=== PATIENT | male | born 1950 | race Caucasian/White ===

== ENCOUNTER → 2017-08-30 12:03 | Outpatient (REF) | payer MEDICARE, OTHER, SELFPAY ==
[2017-08-30 13:57] LABS: Basophils # 0.1 K/mm3 (0-0.2); Eosinophils # 0.2 K/mm3 (0.0-0.4); Eosinophils % 2.7 % (0.1-12.0); Hematocrit 46.7 % (42.0-52.0); Hemoglobin 15.8 g/dL (14.1-18.0); Lymphocytes # 2.2 K/mm3 (0.7-4.5); Lymphocytes % 30.5 K/mm3 (10-50); Mean Corpuscular HGB Conc 33.8 g/dL (31.8-35.4); Mean Corpuscular Hemoglobin 30.9 pg (27.0-31.2); Mean Corpuscular Volume 91.4 fl (80-94); Mean Platelet Volume 7.5 fl (7.4-10.4); Monocytes # 0.3 K/mm3 (0.1-1.0); Monocytes % 4.8 % (1.7-9.3); Neutrophils # 4.3 K/mm3 (1.8-7.8); Platelet Count 189 K/mm3 (142-424); Red Blood Count 5.11 M/mm3 (4.60-6.20); Red Cell Distribution Width 12.9 % (11.5-17.5); White Blood Count 7.1 K/mm3 (4.8-10.8)
[2017-08-30 14:25] LABS: Alanine Aminotransferase 43 U/L (12-78); Albumin Level 4.4 gm/dL (3.4-5.0); Albumin/Globulin Ratio 1.4 (1.1-1.8); Alkaline Phosphatase 103 U/L (46-116); Anion Gap 12.5 mEq/L (5-15); Aspartate Amino Transferase 25 U/L (15-37); Bilirubin,Total 0.4 mg/dL (0.2-1.0); Blood Urea Nitrogen 15 mg/dL (7-18); Calcium 9.2 mg/dL (8.5-10.1); Carbon Dioxide 29 mmol/L (21.0-32.0); Chloride 104 mmol/L (98-107); Creatinine,Serum 1.08 mg/dL (0.70-1.30); Estimated Glomerular Filt Rate 68 ml/min (>60); GFR (African American) 82 ML/MIN (>60); Globulin 3.1 gm/dl (1.3-3.2); Glucose 98 mg/dL (74-106); Potassium 4.5 mmoL/L (3.5-5.1); Sodium 141 mmol/L (136-145); Total Protein,Serum 7.5 gm/dL (6.4-8.2)
[2017-09-01 06:16] LABS: Prostate Specific Ag 7.7 ng/mL (0.0-4.0)
== END ==
LOC: LAB 12:03
PROVIDERS: Visit Provider Emergency Medicine
DX: R39.9 Unspecified symptoms and signs involving the genitourinary system (principal); I25.10 Atherosclerotic heart disease of native coronary artery without angina pectoris; N40.1 Benign prostatic hyperplasia with lower urinary tract symptoms; N52.9 Male erectile dysfunction, unspecified
CPT/HCPCS: 80053; 84153; 84154; 85025

== ENCOUNTER → 2017-09-30 12:08 | Outpatient (CLI) | payer MEDICARE, OTHER, SELFPAY ==
[2017-10-01 13:46] LABS: Prostate Specific Ag 9.6 ng/mL (0.0-4.0)
== END ==
PROVIDERS: PCP Urology; Visit Provider Urology
DX: R97.20 Elevated prostate specific antigen [PSA] (principal)
CPT/HCPCS: 36415; 84153; 84154

== ENCOUNTER → 2017-10-14 10:00 | Outpatient (CLI) | payer MEDICARE, OTHER, SELFPAY ==
--- NOTE | 2017-10-14 10:03 | XR_ITS ---
EXAM: XR lumbar spine 2-3V HISTORY: ITS.REASON: back pain ORDERING PHYSICIAN: Irais Cameron PATIENT AGE: 67 years COMPARISON: None FINDINGS: Normal alignment. No fracture or dislocation. Small anterior osteophytes are present at L4 and L5 with degenerative disc disease at L5-S1. There are mild facet arthritic changes at L5-S1. A 4 mm stone is present along the lower pole the left kidney. IMPRESSION: 1. Mild degenerative changes of lumbar spine. 2. Left nephrolithiasis
== END ==
PROVIDERS: PCP Nurse Practitioner Family; Visit Provider Nurse Practitioner Family
DX: M54.42 Lumbago with sciatica, left side (principal); M79.605 Pain in left leg
CPT/HCPCS: 72100

== ENCOUNTER → 2019-02-24 09:50 | Outpatient (CLI) | payer MEDICARE, OTHER, SELFPAY ==
--- NOTE | 2019-02-24 09:52 | XR_ITS ---
PROCEDURE: XR DEXA AXIAL SKELETON CLINICAL HISTORY: PROSTATE CANCER, HORMONE THERAPY COMPARISON: No exams were available for comparison FINDINGS: Right femoral neck density is 0.983 grams/centimeters sq with a T-score of 0.4 and a Z-score of 1.6. Left femoral total density is 1.115 grams/centimeters sq with a T-score of 0.5 and Z-score 1.2.. L1-L4 density has a T-score 3.3 and a Z-score 4.2. IMPRESSION: Normal bone density Dictated by: Rigoberto Rivera MD 02/24/2019 11:20 Electronically signed by Rigoberto Rivera MD in [place] 02/24/2019 11:20
== END ==
PROVIDERS: PCP Emergency Medicine; Visit Provider Internal Medicine Nephrology
DX: Z79.3 Long term (current) use of hormonal contraceptives (principal)
CPT/HCPCS: 77080

== ENCOUNTER → 2019-07-08 09:24 | Outpatient (CLI) | payer MEDICARE, OTHER, SELFPAY ==
[2019-07-08 13:02] LABS: Anion Gap 13.6 mEq/L (5-15); Blood Urea Nitrogen 26 mg/dl (9-20); Calcium 9.9 mg/dl (8.4-10.2); Carbon Dioxide 24 mmol/L (22.0-30.0); Chloride 107 mmol/L (98-107); Estimated Glomerular Filt Rate 74 ml/min (>60); GFR (African American) 89 ML/MIN (>60); Glucose 122 mg/dl (74-100); Potassium 4.6 mmoL/L (3.5-5.1); Sodium 140 mmol/L (136-145)
== END ==
PROVIDERS: Visit Provider Internal Medicine Cardiovascular Disease
DX: I25.10 Atherosclerotic heart disease of native coronary artery without angina pectoris (principal); I11.9 Hypertensive heart disease without heart failure; I27.20 Pulmonary hypertension, unspecified; I51.89 Other ill-defined heart diseases; F17.200 Nicotine dependence, unspecified, uncomplicated
CPT/HCPCS: 36415; 80048

== ENCOUNTER → 2019-08-10 10:09 | Outpatient (CLI) | payer MEDICARE, OTHER, SELFPAY ==
--- NOTE | 2019-08-10 10:12 | CT_ITS ---
PROCEDURE: CT HEAD/BRAIN WO CON CLINICAL INDICATION: slurred speech COMPARISON: No exams were available for comparison TECHNIQUE: Axial images obtained. All CT scans at the facility use one or more dose reduction, viz: automated exposure control, ma/kV adjustment per patient size (including targeted exams where dose is matched to indication, i.e. head), or iterative reconstruction technique. FINDINGS: No midline shift, mass effect, intracranial hemorrhage, hydrocephalus, or extra-axial fluid collection is evident. There is generalized atrophy with hypoattenuation of the periventricular white matter consistent with microangiopathic changes. The calvarium has an unremarkable appearance. No mastoid effusion. No sinus air-fluid level. IMPRESSION: No acute intracranial finding Dictated by: Rigoberto Rivera MD 08/10/2019 13:14 Electronically signed by Rigoberto Rivera MD in [place] 08/10/2019 13:14
== END ==
PROVIDERS: PCP Emergency Medicine; Visit Provider Nurse Practitioner Family
DX: F17.200 Nicotine dependence, unspecified, uncomplicated (principal); G47.33 Obstructive sleep apnea (adult) (pediatric); I11.9 Hypertensive heart disease without heart failure; I25.10 Atherosclerotic heart disease of native coronary artery without angina pectoris; I27.20 Pulmonary hypertension, unspecified; R47.81 Slurred speech
CPT/HCPCS: 70450

== ENCOUNTER → 2019-08-30 13:32 | Outpatient (CLI) | payer MEDICARE, OTHER, SELFPAY ==
--- NOTE | 2019-08-30 13:34 | CA_ITS ---
APPROVED REPORT EXAM: Comprehensive 2D, Doppler, and color-flow Echocardiogram President And Chief Executive Officer: Katherine Robbins, RT(R) Ht: 5 ft 8 in Wt: 196lbs BSA: 2.03 BP: 110/58 mmHg Indications: HTN, smoker, SOB, NUR, TIA, ERIC, CAD, PHTN, mod MR, an episode of slurred speech, prostate cancer 2D Dimensions LVOT 1.94 cm (M/F) 1.5-2.5 M-Mode Dimensions RVDd 2.36 cm (0.9-2.6) LVDd 4.92 cm (3.5-5.7) LVDs 3.81 cm (3.5-5.7) IVSd 0.91 cm (0.6-1.1) PWd 0.99 cm (0.6-1.1) EF (Teich) 45.30% FS 22.60% EDV (Teich) 113.90 mL ESV (Teich) 62.30 mL LV Diastology E/A Ratio 0.90 Mitral Valve MV A Velocity 101.00 (40-130 cm/s) Left Ventricle Left atrium is mildly enlarged, left ventricle is normal size, mild concentric left ventricular hypertrophy, visually estimated ejection fraction 55% with no regional wall motion abnormality. Grade 1 diastolic dysfunction seen without tissue Doppler evidence of raise left atrial pressure. Right Ventricle Right atrium and right ventricle are mildly enlarged with normal contractility. Aortic Valve Aortic valve is minimally thickened and fibrosed. There is no aortic stenosis or aortic insufficiency. Mitral Valve Mitral valve leaflets are minimally thickened, there is no mitral stenosis, there is mild to moderate mitral regurgitation. Tricuspid Valve Tricuspid valve grossly normal, there is mild tricuspid regurgitation, tricuspid regurgitation jet velocity is inadequate for calculation of the right ventricular systolic pressure. Pulmonic Valve Pulmonic valve is poorly visualized. Great Vessels Aortic root is normal size. Pericardium No significant pericardial effusion noted. Conclusion 1. Mild biatrial enlargement, normal left ventricular size, visually estimated ejection fraction 55% with no regional wall motion abnormality, grade 1 diastolic dysfunction seen without tissue Doppler evidence of raise left atrial pressure. 2. Mildly enlarged right ventricle with normal contractility 3. Mild to moderate mitral and mild tricuspid regurgitation. 4. No significant pericardial effusion noted. Electronically signed by : Colt Carvajal, 08/31/2019 11:36:20
--- NOTE | 2019-08-30 13:34 | CA_ITS ---
APPROVED REPORT Delivery Associate: Connie Calvin RVT Laterality: Bilateral Study Quality: Good Indications: slurred speech, Dizziness and Vertigo Risk Factors Hypertension: Hyperlipidemia Smoking Doppler Spectral Velocity Analysis ECA (R) 106.10/22.80 cm/s ECA (L) 92.00/22.00 cm/s dICA (R) 95.60/38.10 cm/s dICA (L) 92.60/31.30 cm/s Ronaldo (R) 122.50/38.10 cm/s Ronaldo (L) 118.40/45.60 cm/s pICA (R) 85.10/26.30 cm/s pICA (L) 56.20/23.50 cm/s dCCA (R) 68.80/18.50 cm/s dCCA (L) 57.70/21.40 cm/s pCCA (R) 82.80/19.00 cm/s pCCA (L) 96.10/36.30 cm/s Vert (R) 63.60/19.90 cm/s Vert (L) 40.10/14.20 cm/s ICA/CCA 1.78 ICA/CCA 2.05 Findings Study suggests 20-49% stenosis of the right internal cartoid artery. Study suggests 20-49% stenosis of the left internal cartoid artery. Antegrade flow seen bilateral vertebral arteries. Conclusion Study suggests 20-49% stenosis of the right internal cartoid artery. Study suggests 20-49% stenosis of the left internal cartoid artery. Antegrade flow seen bilateral vertebral arteries. Electronically signed by : Rigoberto Rivera MD 08/30/2019 16:23:51
== END ==
PROVIDERS: PCP Emergency Medicine; Visit Provider Nurse Practitioner Family
DX: F17.200 Nicotine dependence, unspecified, uncomplicated (principal); G47.33 Obstructive sleep apnea (adult) (pediatric); I11.9 Hypertensive heart disease without heart failure; I25.10 Atherosclerotic heart disease of native coronary artery without angina pectoris; I27.20 Pulmonary hypertension, unspecified; I34.0 Nonrheumatic mitral (valve) insufficiency; G45.9 Transient cerebral ischemic attack, unspecified; R47.81 Slurred speech
CPT/HCPCS: 93306; 93880

== ENCOUNTER → 2019-09-12 14:51 | Outpatient (CLI) | payer MEDICARE, OTHER, SELFPAY ==
--- NOTE | 2019-09-12 14:51 | MR_ITS ---
PROCEDURE: MR HEAD/BRAIN WO CON CLINICAL INDICATION: TIA SPEECH DISTURBANCE, BALANCE IS OFF, PT STATES HIS SAYS HE HAS HAD EPISODES 4-5 TIMES THE LAST MONTH THAT HE DOESNT RECALL. COMPARISON: CT CT HEAD/BRAIN WO CON from 08/10/2019 TECHNIQUE: Routine multiplanar multi echo sequences are performed without gadolinium enhancement. FINDINGS: No midline shift, mass effect, intracranial hemorrhage, hydrocephalus, or acute cortical infarction is evident. The there are involutional changes of age with atrophy and periventricular ischemic gliotic changes. The cerebellopontine angles, cerebellum, and brainstem have an unremarkable appearance there is some minimal increased T2 signal within the cassius which could be due to minimal ischemic gliotic change. Incidental note made of perivascular dilated spaces of the basal ganglia. The pituitary, optic chiasm, corpus callosum, and craniocervical junction have an unremarkable appearance. There is complete opacification of the right maxillary sinus with mild mucosal thickening of this ethmoid sinuses. No mastoid effusion. IMPRESSION: 1. No acute intracranial findings. 2. Complete opacification of the right maxillary sinus along with mild mucosal thickening of the ethmoid sinuses. The Dictated b Rigoberto Rivera MD 09/13/2019 12:40 Rigoberto Rivera MD in [place] 09/13/2019 12:40
--- NOTE | 2019-09-12 14:51 | MR_ITS ---
PROCEDURE: MR ANGIO HEAD WO CON CLINICAL INDICATION: TIA SPEECH DISTURBANCE, BALANCE IS OFF, PT STATES HIS SAYS HE HAS HAD EPISODES 4-5 TIMES IN THE LAST MONTH THAT HE DOESNT RECALL. COMPARISON: No exams were available for comparison TECHNIQUE: 3D [id number] images are obtained without contrast with multi slab reformats FINDINGS: The vertebral basilar system has an unremarkable appearance. Bilateral vertebral arteries are patent. No aneurysm, AVM, or major intracranial occlusive process is. Single-shot MRV is unremarkable. The distal aspect the anterior cerebral arteries are not included on the exam. IMPRESSION: Negative MRA of the brain. Dictated b Rigoberto Rivera MD 09/13/2019 12:45 Rigoberto Rivera MD in [place] 09/13/2019 12:45
--- NOTE | 2019-09-12 15:09 | MR_ITS ---
PROCEDURE: MR ANGIO NECK WO CON CLINICAL INDICATION: TIA SPEECH DISTURBANCE, BALANCE IS OFF, PT STATES HIS SAYS HE HAS HAD EPISODES 4-5 TIMES IN THE LAST MONTH THAT HE DOESNT RECALL. COMPARISON: No exams were available for comparison TECHNIQUE: [id number] images are obtained with multi slab reformats without contrast. FINDINGS: There is a mild degree of motion artifact. No significant carotid stenosis apparent. Vertebrals are patent. IMPRESSION: Negative MRA of the neck Dictated b Rigoberto Rivera MD 09/13/2019 12:42 Rigoberto Rivera MD in [place] 09/13/2019 12:42
== END ==
PROVIDERS: PCP Emergency Medicine; Visit Provider Emergency Medicine
DX: G45.9 Transient cerebral ischemic attack, unspecified (principal)
CPT/HCPCS: 70544; 70547; 70551

== ENCOUNTER → 2022-04-28 09:48 | Outpatient (CLI) | payer MEDICARE, OTHER, SELFPAY ==
--- NOTE | 2022-04-28 | CA_ITS ---
APPROVED REPORT EXAM: Comprehensive 2D, Doppler, and color-flow Echocardiogram Electronic Parts Designer: Katherine Robbins RT(R) Ht: 5 ft 8 in Wt: 204lbs BSA: 2.06 BP: 136/82 mmHg Indications: CAD, HTN, smoker, hyperlipidemia, ALS, prostate CA 2D Dimensions LVOT 2.08 cm (M/F) 1.5-2.5 M-Mode Dimensions RVDd 2.50 cm (0.9-2.6) LA Diam 3.01 cm (1.9-4.0) LVDd 5.64 cm (3.5-5.7) Ao Diam 3.13 cm (2.0-3.7) LVDs 4.58 cm (3.5-5.7) IVSd 1.21 cm (0.6-1.1) PWd 0.76 cm (0.6-1.1) EF (Teich) 38.30% FS 18.80% EDV (Teich) 156.20 mL ESV (Teich) 96.30 mL LV Diastology E Decel Time 283.00 (160-240 msec) E/A Ratio 0.8 MED E' 5.40 (< 7 cm/sec) E'/MED E' Ratio 14.94 (>14) LAT E' 7.40 (<10 cm/sec) E/LAT E' Ratio 10.91 (>14) Mitral Valve MV E Max Blue. 81.00 (40-130 cm/s) MV A Velocity 100.00 (40-130 cm/s) E/A Ratio 0.81 MV Decel. Time 283.00 (160-240 ms) MV PHT 83.00 ms Left Ventricle Left atrium is mildly enlarged, left ventricle is normal size, mild concentric left ventricular hypertrophy, estimated ejection fraction 55% with no regional wall motion abnormality, grade 1 diastolic dysfunction seen without tissue Doppler evidence of raise left atrial pressure. Right Ventricle Right atrium and right ventricle are normal size and contractility. Aortic Valve Aortic valve is minimally thickened and calcified without aortic stenosis aortic insufficiency. Mitral Valve Mitral valve leaflets are minimally thickened, there is mild mitral regurgitation. Tricuspid Valve Tricuspid grossly normal, there is mild tricuspid regurgitation, tricuspid regurgitation jet plus is inadequate for calculation of the right ventricular systolic pressure. Pulmonic Valve Pulmonic valve is poorly visualized. Great Vessels Aortic root normal size. Inferior vena cava is poorly visualized. Pericardium No significant pericardial effusion noted. Conclusion 1. Mildly enlarged atrium, normal left ventricular size, mild concentric left ventricular hypertrophy, estimated ejection fraction 55% with no regional wall motion abnormality, grade 1 diastolic dysfunction seen without tissue Doppler evidence of raised left atrial pressure. 2. Mild mitral and tricuspid regurgitation. 3. No significant pericardial effusion noted. 4. Inferior vena cava is poorly visualized. Electronically signed by : Colt Carvajal MD 04/28/2022 19:12:58
--- NOTE | 2022-04-28 | CA_ITS ---
FINAL REPORT TECHNIQUE: Color Doppler, duplex Doppler and davis scale sonography of the bilateral neck arterial vasculature was performed. Velocities were measured in the carotid arteries. Stenosis evaluation based on the validated velocity criteria. CLINICAL HISTORY: OLINDA, Bruit FINDINGS: The peak systolic velocity of the right common carotid artery is 73 cm/s. The peak systolic velocity of the right internal carotid artery is 153 cm/s and end diastolic velocity 30 cm/s. The ICA/CCA ratio is 2.2. Bulky plaque is present. The right external carotid artery is patent. The right vertebral artery is patent with antegrade flow. The peak systolic velocity of the left common carotid artery is 61 cm/s. The peak systolic velocity of the left internal carotid artery is 112 cm/s and end diastolic velocity 45 cm/s. The ICA/CCA ratio is 1.9. A moderate amount of plaque is present. The left external carotid artery is patent.The left vertebral artery is patent with antegrade flow. IMPRESSION: Less than 50% bilateral carotid stenoses. Bilateral patent vertebral arteries with antegrade flow. If indicated, CTA or MRA could further evaluate. Reviewed, Interpreted and Dictated by Cesar Mcbride MD Transcribed by Diana Chavez Authenticated and [facility]
== END ==
PROVIDERS: PCP Emergency Medicine; Visit Provider Nurse Practitioner Family
DX: I25.10 Atherosclerotic heart disease of native coronary artery without angina pectoris (principal); I65.23 Occlusion and stenosis of bilateral carotid arteries
CPT/HCPCS: 93306; 93880

== ENCOUNTER → 2022-06-02 11:03 | Outpatient (POV) | payer OTHER, SELFPAY | PROVIDERS: Visit Provider Dermatology | DX: Z00.00 Encounter for general adult medical examination without abnormal findings (principal) ==

== ENCOUNTER → 2022-11-17 09:00 | Outpatient (CLI) | payer MEDICARE, OTHER, SELFPAY ==
[2022-11-17 13:07] LABS: Basophils % 0.5 % (0.1-2.0); Eosinophils # 0.1 K/mm3 (0.0-0.4); Eosinophils % 2.1 % (0.1-12.0); Hematocrit 29.4 % (42.0-52.0); Lymphocytes # 1.2 K/mm3 (0.7-4.5); Lymphocytes % 28.5 % (10-50); Mean Corpuscular HGB Conc 33.9 g/dL (31.8-35.4); Mean Corpuscular Volume 123.3 fl (80-94); Mean Platelet Volume 8.2 fl (7.4-10.4); Monocytes # 0.1 K/mm3 (0.1-1.0); Monocytes % 3.2 % (1.7-9.3); Neutrophils # 2.7 K/mm3 (1.8-7.8); Neutrophils % 65.7 % (37.0-80.0); Platelet Count 270 K/mm3 (142-424); Red Blood Count 2.39 M/mm3 (4.60-6.20); Red Cell Distribution Width 17.6 % (11.5-17.5)
[2022-11-17 13:12] LABS: Mean Corpuscular Hemoglobin 41.8 pg (27.0-31.2)
[2022-11-17 13:38] LABS: Alanine Aminotransferase 23 U/L (12-78); Albumin Level 4.1 g/dl (3.5-5.0); Albumin/Globulin Ratio 1.8 (1.1-1.8); Alkaline Phosphatase 77 U/L (38-126); Anion Gap 13.7 mEq/L (5-15); Aspartate Amino Transferase 25 U/L (17-59); Bilirubin,Total 0.4 mg/dl (0.2-1.3); Blood Urea Nitrogen 22 mg/dl (9-20); Calcium 9.6 mg/dl (8.4-10.2); Carbon Dioxide 26 mmol/L (22.0-30.0); Chloride 108 mmol/L (98-107); Chol/HDL Ratio 5.5 (1-3.5); Cholesterol 133 mg/dl (140-200); Estimated Glomerular Filt Rate 66 ml/min (>60); GFR (African American) 79 ML/MIN (>60); Globulin 2.3 g/dL (1.3-3.2); Glucose 132 mg/dl (74-100); HDL Cholesterol 24 mg/dl (40-60); Potassium 3.7 mmoL/L (3.5-5.1); Sodium 144 mmol/L (136-145); Total Protein,Serum 6.4 g/dl (6.3-8.2); Triglycerides 123 mg/dl (30-150); VLDL Cholesterol 25 mg/dL (0-40)
[2022-11-17 13:55] LABS: 25-OH Vitamin D, Total 56.8 ng/mL (30-100)
[2022-11-17 13:56] LABS: T4 (Thyroxine) 9.1 ug/dl (5.53-11.0)
[2022-11-17 14:09] LABS: Thyroid Stimulating Hormone 3.27 uIU/mL (0.465-4.68)
== END ==
PROVIDERS: PCP Emergency Medicine; Visit Provider Emergency Medicine
DX: G12.21 Amyotrophic lateral sclerosis (principal); R73.09 Other abnormal glucose; Z68.31 Body mass index [BMI] 31.0-31.9, adult; E66.9 Obesity, unspecified; R53.83 Other fatigue
CPT/HCPCS: 80053; 80061; 82306; 83036; 84436; 84443; 85025

== ENCOUNTER → 2022-11-27 09:50 | Outpatient (CLI) | payer MEDICARE, OTHER, SELFPAY ==
[2022-11-27 12:42] LABS: Basophils % 0.5 % (0.1-2.0); Eosinophils # 0.1 K/mm3 (0.0-0.4); Eosinophils % 2.7 % (0.1-12.0); Hematocrit 30.8 % (42.0-52.0); Hemoglobin 10.3 g/dL (14.1-18.0); Lymphocytes # 1.4 K/mm3 (0.7-4.5); Lymphocytes % 33.9 % (10-50); Mean Corpuscular HGB Conc 33.5 g/dL (31.8-35.4); Mean Corpuscular Volume 125.4 fl (80-94); Mean Platelet Volume 8.1 fl (7.4-10.4); Monocytes # 0.1 K/mm3 (0.1-1.0); Monocytes % 2.4 % (1.7-9.3); Neutrophils # 2.5 K/mm3 (1.8-7.8); Neutrophils % 60.4 % (37.0-80.0); Platelet Count 262 K/mm3 (142-424); Red Blood Count 2.46 M/mm3 (4.60-6.20); Red Cell Distribution Width 17.4 % (11.5-17.5); White Blood Count 4.1 K/mm3 (4.8-10.8)
[2022-11-29 12:30] LABS: Peripheral Smear Review Scanned Result
== END ==
PROVIDERS: PCP Emergency Medicine; Visit Provider Emergency Medicine
DX: I25.10 Atherosclerotic heart disease of native coronary artery without angina pectoris (principal); R53.83 Other fatigue
CPT/HCPCS: 85025

== ENCOUNTER 2023-06-21 11:12 | Emergency (ER) | payer MEDICARE, OTHER, SELFPAY ==
--- NOTE | 2023-06-21 11:38 | EXP.UTC ---
Discharge Plan Disposition Patient Disposition: Home, Self-Care Condition: Good Prescriptions Prescriptions: No Action tamsulosin [Flomax] 0.4 mg capsule 0.4 mg PO DAILY cholecalciferol (vitamin D3) 25 mcg (1,000 unit) capsule 25 mcg PO DAILY ascorbic acid (vitamin C) 500 mg capsule 500 mg PO DAILY clopidogrel [Plavix] 75 mg tablet 75 mg PO DAILY memantine 10 mg tablet 10 mg PO BID magnesium oxide 500 mg tablet 500 mg PO BID omega-3 fatty acids [Fish Oil Concentrate] 1,000 mg capsule 1,000 mg PO DAILY zinc 50 mg tablet 50 mg PO DAILY Lynparza 150 mg tablet 300 mg PO BID leuprolide 7.5 mg injectable IM bicalutamide 50 mg tablet 50 mg PO DAILY Patient Comments: TAKE 1 TABLET BY MOUTH EVERY DAY megestrol 40 mg tablet 40 mg PO BID Patient Comments: TAKE 1 TABLET (40 MG TOTAL) BY MOUTH 3 TIMES A DAY FOR 60 DAYS. riluzole 50 mg tablet 50 mg PO BID Patient Comments: TAKE 1 TABLET BY MOUTH EVERY 12 HOURS losartan 50 mg tablet 50 mg PO DAILY Qty: 90 5RF Referrals Follow up/Referrals: [place] DO [Primary Care Provider] - See instructions Activity Restrictions/Add. Instructions Additional Instructions/Restrictions: You have been evaluated in the ED for your complaints. You may follow-up with your PCP in the next 3 to 5 days. Please return to ED for any new or worsening symptoms. Please continue to watch your urine as discussed. You develop any fevers or pelvic pain, please return to the ED for reassessment. Clinical Impressions Clinical Impression: Acute right flank pain, Hematuria Instructions Patient Instructions: DI for Acute Abdominal Pain Discharge ED Provider: Francia Chen [facility] General Chief complaint: Abdominal Pain Stated complaint: lower right side pain Time Seen by Provider: 06/21/23 11:38 History of Present Illness Provider Complaint: He states that he has had right flank pain that goes from his right lower back around toward his groin for the past 3 days. He rates the pain as an 8/10. He states that the pain is constant, but at times it gets worse in waves . He denies any urinary symptoms. He has ALS, so his is normally weak, but he has been much more weak than his normal since this pain started. He denies any fever/chills. He denies n/v/d. His last bowel movement was 2 days ago and he states it was normal . He states that he usually has a b.m. every one to two days. He has a significant history of metastatic prostate cancer and ALS. Related Data Home Medications Medication Instructions Recorded Confirmed cholecalciferol (vitamin D3) 25 25 mcg PO DAILY 06/29/19 06/21/23 mcg (1,000 unit) capsule tamsulosin 0.4 mg capsule (Flomax) 0.4 mg PO DAILY 06/29/19 06/21/23 ascorbic acid (vitamin C) 500 mg 500 mg PO DAILY 08/29/20 06/21/23 capsule clopidogrel 75 mg tablet (Plavix) 75 mg PO DAILY 08/29/20 06/21/23 magnesium oxide 500 mg PO BID 08/29/20 06/21/23 memantine 10 mg tablet 10 mg PO BID 08/29/20 06/21/23 omega-3 fatty acids 1,000 mg 1,000 mg PO DAILY 08/29/20 06/21/23 capsule (Fish Oil Concentrate) zinc 50 mg tablet 50 mg PO DAILY 08/29/20 06/21/23 leuprolide 7.5 mg intramuscular mg IM 04/21/22 03/03/23 megestrol 40 mg tablet 40 mg PO BID 04/21/22 06/21/23 olaparib 150 mg tablet (Lynparza) 300 mg PO BID 04/21/22 03/03/23 riluzole 50 mg tablet 50 mg PO BID 11/17/22 06/21/23 bicalutamide 50 mg tablet 50 mg PO DAILY 03/03/23 06/21/23 Previous Rx's Medication Instructions Recorded losartan 50 mg tablet 50 mg PO DAILY #90 tabs 04/19/23 Allergies Allergy/AdvReac Type Severity Reaction Status Date / Time shellfish derived Allergy Intermediate I-HIVES Verified 06/21/23 12:01 [From SHELLFISH (FOOD/DRUG)] From SHELLFISH (FOOD/DRUG) Allergy Intermediate I-HIVES Uncoded 06/21/23 12:53 [facility] Disclaimer: The information contained in this section may have been updated after the patient was seen, as this information can be updated by other users. Medical History Diastolic dysfunction Hypertension Prostate cancer ALS (amyotrophic lateral sclerosis) Slurred speech Moderate mitral valve regurgitation HHD (hypertensive heart disease) Pulmonary hypertension Tobacco dependence syndrome Diastolic dysfunction Coronary arteriosclerosis Social History Smoking Status: Current every day smoker tobacco type: cigarettes packs per day: 1 alcohol intake: never substance use type: denies use current occupational status: retired Travel in the last 8 weeks: Inside the [place] caffeine: Yes ROS Obtained: Yes All systems reviewed & no additional complaints except as documented Constitutional Constitutional: Denies chills, Denies fever(s) and Reports weakness Eyes Eyes: Denies eye discharge ENT Ears, Nose, Mouth, and Throat: Denies dizziness, Denies otalgia, Denies neck pain and Denies sore throat Cardiovascular Cardiovascular: Denies chest pain Respiratory Respiratory: Denies shortness of breath, Denies chest congestion, Denies cough, Denies stridor and Denies wheezing Gastrointestinal Gastrointestingal: Denies nausea or vomiting Musculoskeletal Musculoskeletal: Reports as per HPI, Reports back pain and Denies neck pain Integumentary/Breasts Skin/Breast: Denies rash Neurologic Neurologic: Denies dizziness, Denies paresthesias, Reports tremor(s) and Reports weakness Allergic/Immunologic Allergic/Immunologic: Denies wheezing Physical Exam General General appearance: alert and anxious Head Head exam: atraumatic, normocephalic and normal inspection Eye Eye exam: Present normal appearance, PERRL and EOMI ENT ENT exam: Present normal exam, normal oropharynx, mucous membranes moist, TM's normal bilaterally and normal external ear exam Neck Neck exam: Present normal inspection, full ROM and trachea midline; Absent meningismus or lymphadenopathy Chest Chest inspection: Present normal inspection and symmetric chest wall rise; Absent tenderness Respiratory Respiratory exam: Present normal lung sounds bilaterally; Absent respiratory distress Cardiovascular Cardiovascular exam: Present regular rate and normal rhythm; Absent JVD Abdominal Exam Abdominal exam: Present soft and normal bowel sounds; Absent distention, tenderness or guarding Extremities Exam Extremities exam: Present normal inspection, full ROM and normal capillary refill; Absent calf tenderness Back Exam Back exam: Present normal inspection; Absent tenderness Neurological Exam Neurological exam: Present alert and oriented X3 Expanded Neurological Exam Speech: Present fluid speech Motor strength - LUE: 3/5 Motor strength - RUE: 3/5 Motor strength - LLE: 3/5 Motor strength - RLE: 3/ Psychiatric Psychiatric exam: Present normal affect and normal mood Skin Skin exam: Present warm, dry, intact and normal color Lymphatic Lymphatic Findings: no adenopathy Medical Decision Making Medical Records Medical records reviewed: No I reviewed the patient's medical records. [place] Inquiry Pt receiving controlled substance: No Lab Data Lab results reviewed: Yes I reviewed the patient's lab results. 06/21/23 12:42 06/21/23 12:42 Medical Decision Narrative: He was transferred to the ER for further evaluation due to his history of metastatic prostate cancer and ALS.
[2023-06-21 11:40] VITALS: BP 113/65; PULSE 71; RESP 18; TEMP 37.3; O2SAT 95; BMI 31.0
[2023-06-21 12:55] LABS: Basophils % 0.6 % (0.1-2.0); Eosinophils % 0.9 % (0.1-12.0); Hematocrit 34.9 % (42.0-52.0); Hemoglobin 11.3 g/dL (14.1-18.0); Lymphocytes # 0.9 K/mm3 (0.7-4.5); Lymphocytes % 19.4 % (10-50); Mean Corpuscular HGB Conc 32.4 g/dL (31.8-35.4); Mean Corpuscular Hemoglobin 31.4 pg (27.0-31.2); Mean Corpuscular Volume 97.1 fl (80-94); Mean Platelet Volume 7.6 fl (7.4-10.4); Monocytes # 0.3 K/mm3 (0.1-1.0); Monocytes % 6.6 % (1.7-9.3); Neutrophils # 3.3 K/mm3 (1.8-7.8); Neutrophils % 72.4 % (37.0-80.0); Platelet Count 220 K/mm3 (142-424); Red Cell Distribution Width 14.2 % (11.5-17.5); White Blood Count 4.6 K/mm3 (4.8-10.8)
[2023-06-21 12:59] LABS: Apearance,Urine Clear (Clear); Bilirubin,Urine Negative (Negative); Blood, Urine 2+ (Negative); Color,Urine Yellow (Yellow); Glucose,Urine (UA) Negative (Negative); Ketones,Urine Negative (Negative); PH,Urine 5.5 (5.0-8.5); Protein,Urine Negative (Negative); Specific Gravity, Urine 1.025 (1.005-1.030); UTC Leukocyte Esterase,Urine Negative (Negative); UTC Nitrate,Urine Negative (Negative); Urobilinogen,Urine 0.2 EU/dl (0.2)
[2023-06-21 13:01] LABS: Chloride 100 mmol/L (98-107)
[2023-06-21 13:02] LABS: Potassium 4.7 mmoL/L (3.5-5.1); Sodium 134 mmol/L (136-145)
[2023-06-21 13:04] LABS: Alkaline Phosphatase 622 U/L (38-126); Amylase 68 U/L (30-110); Anion Gap 15.7 mEq/L (5-15); Bilirubin,Total 0.9 mg/dl (0.2-1.3); Blood Urea Nitrogen 17 mg/dl (9-20); Calcium 9.8 mg/dl (8.4-10.2); Carbon Dioxide 23 mmol/L (22.0-30.0); Creatinine Clearance Estimated 85 mL/min (50-200); Estimated Glomerular Filt Rate 73 ml/min (>60); GFR (African American) 88 ML/MIN (>60); Glucose 99 mg/dl (74-100); Lipase 84 U/L (23-300)
[2023-06-21 13:05] LABS: Albumin Level 4.3 g/dl (3.5-5.0); Albumin/Globulin Ratio 1.4 (1.1-1.8); Aspartate Amino Transferase 53 U/L (17-59); Globulin 3.1 g/dL (1.3-3.2); Total Protein,Serum 7.4 g/dl (6.3-8.2)
[2023-06-21 13:06] LABS: Alanine Aminotransferase 45 U/L (12-78)
[2023-06-21 13:44] VITALS: BP 163/74; PULSE 77; RESP 16; TEMP 37.3; O2SAT 99; BMI 31.0
[2023-06-21 14:01] VITALS: BP 132/70; PULSE 76; O2SAT 95
--- NOTE | 2023-06-21 14:02 | CT_ITS ---
FINAL REPORT TECHNIQUE: Axial imaging of the lumbar spine was obtained without contrast. Sagittal and coronal reformatted images were also obtained and reviewed. This study was performed with techniques to keep radiation doses as low as reasonably achievable (ALARA). Individualized dose reduction techniques using automated exposure control or adjustment of mA and/or kV according to the patient's size were employed. CLINICAL HISTORY: severe low back/flank pain with h/o prostate ca COMPARISON: None FINDINGS: There is no fracture. The vertebral alignment is normal. The disc spaces are preserved.There is no evidence of significant central canal stenosis. There are multiple sclerotic areas consistent with widespread bony metastases in this patient with known prostate carcinoma. These metastatic changes are most severe at the L3 and L4 levels. L1-L2: An annular bulge is present. No evidence of central canal stenosis or neural foraminal narrowing. L2-L3: An annular bulge is present with facet osteoarthropathy and osteophytes. There is mild right neural foraminal narrowing. L3-L4: An annular bulge is present with facet arthropathy and osteophytes. There is moderate bilateral neural foraminal narrowing. L4-L5: An annular bulge is present with facet arthropathy and osteophytes. There is moderate bilateral neural foraminal narrowing. L5-S1: An annular bulge is present with facet arthropathy and osteophytes. There is severe bilateral neural foraminal narrowing. There is widespread confluent retroperitoneal adenopathy present in the abdomen, likely from the patient's known prostate carcinoma. IMPRESSION: Widespread confluent retroperitoneal adenopathy, likely from the patient's known prostate cancer. There are multiple sclerotic areas consistent with widespread bony metastases, most severe at the L3 and L4 levels. Multilevel degenerative change, with moderate to severe bilateral neural foraminal narrowing at multiple levels. Reviewed, Interpreted and Dictated by Jarod Teran III, MD Transcribed by Antonieta Liriano Authenticated and [facility]
--- NOTE | 2023-06-21 14:02 | CT_ITS ---
FINAL REPORT CLINICAL HISTORY: severe R flank pain COMPARISON: None FINDINGS: Axial CT images of the abdomen and pelvis were obtained without intravenous contrast. Coronal and sagittal reformatted images were also obtained.This study was performed with techniques to keep radiation doses as low as reasonably achievable (ALARA). Individualized dose reduction techniques using automated exposure control or adjustment of mA and/or kV according to the patient's size were employed. Abdomen: Bibasilar atelectasis present. There is no evidence of renal stone. There is mild right hydronephrosis and hydroureter. The gallstone is present in the gallbladder. The liver, spleen and pancreas have an unremarkable, unenhanced appearance. There is widespread retroperitoneal adenopathy, measuring 12 x 5 cm in size, surrounding the aorta and inferior vena cava, consistent with metastatic adenopathy from the patient's known prostate carcinoma. No inflammatory process is identified. Pelvis: Images of the pelvis reveal no evidence of ureteral dilation or ureteral stone.No mass or abnormal fluid collection is identified. The appendix is normal in appearance. There is a small umbilical hernia containing fat. Scattered colonic diverticula are present. Prostate seed implants are noted. Bilateral inguinal hernias containing fat are noted as well. There are multiple sclerotic foci in the spine and pelvis consistent with bony metastases. IMPRESSION: Widespread retroperitoneal adenopathy is present as described above, surrounding the aorta and inferior vena cava consistent with metastatic adenopathy. There is mild right hydronephrosis and hydroureter. Multiple sclerotic foci in the spine and pelvis consistent with bony metastases. Reviewed, Interpreted and Dictated by Jarod Teran III, MD Transcribed by Antonieta Liriano Authenticated and [facility]
[2023-06-21 14:07] LABS: Microscopic, Urine URINE MICROSCOPIC (MICROSCOPIC)
[2023-06-21 14:12] LABS: Appearance,Urine CLEAR (Clear); Bilirubin,Urine Negative (Negative); Blood, Urine 1+ (Negative); Color,Urine YELLOW (Yellow); Glucose,Urine (UA) Negative (Negative); Ketones,Urine Negative (Negative); Leukocyte Esterase,Urine Negative (Negative); Nitrate,Urine Negative (Negative); Protein,Urine Negative (Negative); Urobilinogen,Urine 0.2 EU/dl (0.2)
--- NOTE | 2023-06-21 14:26 | HMH.EDGENADL ---
Discharge Plan Disposition Patient Disposition: Still a Patient Condition: Good Prescriptions Prescriptions: No Action tamsulosin [Flomax] 0.4 mg capsule 0.4 mg PO DAILY cholecalciferol (vitamin D3) 25 mcg (1,000 unit) capsule 25 mcg PO DAILY ascorbic acid (vitamin C) 500 mg capsule 500 mg PO DAILY clopidogrel [Plavix] 75 mg tablet 75 mg PO DAILY memantine 10 mg tablet 10 mg PO BID magnesium oxide 500 mg tablet 500 mg PO BID omega-3 fatty acids [Fish Oil Concentrate] 1,000 mg capsule 1,000 mg PO DAILY zinc 50 mg tablet 50 mg PO DAILY Lynparza 150 mg tablet 300 mg PO BID leuprolide 7.5 mg injectable IM bicalutamide 50 mg tablet 50 mg PO DAILY Patient Comments: TAKE 1 TABLET BY MOUTH EVERY DAY megestrol 40 mg tablet 40 mg PO BID Patient Comments: TAKE 1 TABLET (40 MG TOTAL) BY MOUTH 3 TIMES A DAY FOR 60 DAYS. riluzole 50 mg tablet 50 mg PO BID Patient Comments: TAKE 1 TABLET BY MOUTH EVERY 12 HOURS losartan 50 mg tablet 50 mg PO DAILY Qty: 90 5RF Referrals Follow up/Referrals: [place] DO [Primary Care Provider] - See instructions Activity Restrictions/Add. Instructions Additional Instructions/Restrictions: You have been evaluated in the ED for your complaints. You may follow-up with your PCP in the next 3 to 5 days. Please return to ED for any new or worsening symptoms. Please continue to watch your urine as discussed. You develop any fevers or pelvic pain, please return to the ED for reassessment. Clinical Impressions Clinical Impression: Acute right flank pain, Hematuria Instructions Patient Instructions: DI for Acute Abdominal Pain Discharge ED Provider: Francia Chen General Adult HPI <Francia Chen DO - Last Filed: 06/21/23 15:50> General Chief complaint: Abdominal Pain Stated complaint: lower right side pain Time Seen by Provider: 06/21/23 11:38 Mode of Arrival: Wheelchair Source of Information: Patient Limitations: No Limitations Description of Symptoms (Recalled from ER Triage Doc. by RN): Pt's symptoms are pain in right lower back that radiates to the right lower quad. History of Present Illness HPI narrative: This patient is a 73-year-old male with a history of ALS, hypertension, hyperlipidemia, prostate cancer, and CAD presenting to the emergency department for evaluation with concern for severe right lower back pain that radiates into his right lower quadrant. He states that this started on Wednesday but has been persistent since. He also felt that he has been weaker than usual. He notes that the pain comes and goes and when it comes, it is sharp and throbbing. Nothing seems to make it better or worse at home. He denies any fevers, chills, numbness, tingling, saddle anesthesia, incontinence, nausea, vomiting, change in bowel movements, changes in urination, or other concerns. He does note that he feels generally much weaker than usual and is having trouble with his daily activities secondary to this. No recent falls or traumatic injuries. I reviewed prior records including [facility] evaluation prior to transfer over here and noted that the patient had hematuria, but labs are otherwise around his baseline. I spoke with the [facility] provider who was concerned that the patient may need a CT scan. Related Data Home Medications Medication Instructions Recorded Confirmed cholecalciferol (vitamin D3) 25 25 mcg PO DAILY 06/29/19 06/21/23 mcg (1,000 unit) capsule tamsulosin 0.4 mg capsule (Flomax) 0.4 mg PO DAILY 06/29/19 06/21/23 ascorbic acid (vitamin C) 500 mg 500 mg PO DAILY 08/29/20 06/21/23 capsule clopidogrel 75 mg tablet (Plavix) 75 mg PO DAILY 08/29/20 06/21/23 magnesium oxide 500 mg PO BID 08/29/20 06/21/23 memantine 10 mg tablet 10 mg PO BID 08/29/20 06/21/23 omega-3 fatty acids 1,000 mg 1,000 mg PO DAILY 08/29/20 06/21/23 capsule (Fish Oil Concentrate) zinc 50 mg tablet 50 mg PO DAILY 08/29/20 06/21/23 leuprolide 7.5 mg intramuscular mg IM 04/21/22 03/03/23 megestrol 40 mg tablet 40 mg PO BID 04/21/22 06/21/23 olaparib 150 mg tablet (Lynparza) 300 mg PO BID 04/21/22 03/03/23 riluzole 50 mg tablet 50 mg PO BID 11/17/22 06/21/23 bicalutamide 50 mg tablet 50 mg PO DAILY 03/03/23 06/21/23 Previous Rx's Medication Instructions Recorded losartan 50 mg tablet 50 mg PO DAILY #90 tabs 04/19/23 Allergies Allergy/AdvReac Type Severity Reaction Status Date / Time shellfish derived Allergy Intermediate I-HIVES Verified 06/21/23 12:01 [From SHELLFISH (FOOD/DRUG)] From SHELLFISH (FOOD/DRUG) Allergy Intermediate I-HIVES Uncoded 06/21/23 12:53 PFSH <Francia Chen DO - Last Filed: 06/21/23 15:50> [facility] Disclaimer: The information contained in this section may have been updated after the patient was seen, as this information can be updated by other users. Medical History Diastolic dysfunction Hypertension Prostate cancer ALS (amyotrophic lateral sclerosis) Slurred speech Moderate mitral valve regurgitation HHD (hypertensive heart disease) Pulmonary hypertension Tobacco dependence syndrome Diastolic dysfunction Coronary arteriosclerosis Social History Smoking Status: Current every day smoker tobacco type: cigarettes packs per day: 1 alcohol intake: never substance use type: denies use current occupational status: retired Travel in the last 8 weeks: Inside the [place] caffeine: Yes <Francia Chen DO - Last Filed: 06/21/23 15:50> ROS Obtained: Yes All systems reviewed & no additional complaints except as documented Physical Exam <Francia Chen DO - Last Filed: 06/21/23 15:50> General General appearance: alert, in no apparent distress and obese Head Head exam: atraumatic and normocephalic Eye Eye exam: Present normal appearance, PERRL and EOMI ENT ENT exam: Present normal exam, normal oropharynx, mucous membranes moist and normal external ear exam Neck Neck exam: Present normal inspection, full ROM and trachea midline; Absent tenderness Chest Chest inspection: Present normal inspection and symmetric chest wall rise; Absent tenderness Respiratory Respiratory exam: Present normal lung sounds bilaterally; Absent respiratory distress, wheezes, stridor or accessory muscle use Cardiovascular Cardiovascular exam: Present regular rate and normal rhythm Abdominal Exam Abdominal exam: Present soft and distention; Absent tenderness, guarding, rebound or rigidity Extremities Exam Extremities exam: Present normal inspection, full ROM and normal capillary refill; Absent tenderness or edema Back Exam Back exam: Present normal inspection and full ROM; Absent tenderness, muscle spasm or paraspinal tenderness Neurological Exam Neurological exam: Present alert, oriented X3, CN II-XII intact and other (At his neurologic and functional baseline with overall some mild increased generalized weakness) Psychiatric Psychiatric exam: Present normal affect and normal mood Skin Skin exam: Present warm and dry Medical Decision Making <Francia Chen, DO - Last Filed: 06/21/23 15:50> Medical Records Medical records reviewed: Yes I reviewed the patient's medical records. [place] Inquiry Pt receiving controlled substance: No Vital Signs: 06/21/23 11:40 06/21/23 13:44 06/21/23 14:01 Temperature 99.2 F 99.2 F Temperature Source Oral Oral Pulse Rate 76 Pulse Rate [Right Radial] 71 77 Respiratory Rate 18 16 Blood Pressure 132/70 Blood Pressure [Right Arm] 113/65 163/74 H Blood Pressure Mean 110 Blood Pressure Mean [Right Arm] 81 103 Blood Pressure Source [Right Arm] Automatic Cuff Automatic Cuff Blood Pressure Position [Right Arm] Sitting Sitting 02 Sat by Pulse Oximetry 95 99 95 Oxygen Delivery Method Room Air Room Air 06/21/23 14:47 Temperature Temperature Source Pulse Rate 66 Pulse Rate [Right Radial] Respiratory Rate Blood Pressure 158/77 H Blood Pressure [Right Arm] Blood Pressure Mean 104 Blood Pressure Mean [Right Arm] Blood Pressure Source [Right Arm] Blood Pressure Position [Right Arm] 02 Sat by Pulse Oximetry 94 L Oxygen Delivery Method Lab Data Lab results reviewed: Yes I reviewed the patient's lab results. Lab Results 06/21/23 12:16: Urine Color Yellow, Urine Appearance Clear, Urine pH 5.5, Ur Specific [place] 1.025, Urine Protein Negative, Urine Glucose (UA) Negative, Urine Ketones Negative, Urine Blood 2+, Urine Nitrate Negative, Urine Bilirubin Negative, Urine Urobilinogen 0.2, Ur Leukocyte Esterase Negative 06/21/23 12:42: WBC 4.6 L, RBC 3.60 L, Hgb 11.3 L, Hct 34.9 L, MCV 97.1 H, MCH 31.4 H, MCHC 32.4, RDW 14.2, Plt Count 220, MPV 7.6, Neut % (Auto) 72.4, Lymph % (Auto) 19.4, Carlton % (Auto) 6.6, Eos % (Auto) 0.9, Baso % (Auto) 0.6, Neut # (Auto) 3.3, Lymph # (Auto) 0.9, Carlton # (Auto) 0.3, Eos # (Auto) 0.0, Baso # (Auto) 0.0, Sodium 134 L, Potassium 4.7, Chloride 100, Carbon Dioxide 23, Anion Gap 15.7 H, BUN 17, Creatinine 1.00, Estimated Creat Clear 85, Estimated GFR 73, Est GFR ( Amer) 88, Glucose 99, Calcium 9.8, Total Bilirubin 0.9, AST 53, ALT 45, Alkaline Phosphatase 622 H, Total Protein 7.4, Albumin 4.3, Globulin 3.1, Albumin/Globulin Ratio 1.4, Amylase 68, Lipase 84 06/21/23 13:47: Urine Color Yellow, Urine Appearance Clear, Urine pH 6.0, Ur Specific [place] 1.010, Urine Protein Negative, Urine Glucose (UA) Negative, Urine Ketones Negative, Urine Blood 1+, Urine Nitrate Negative, Urine Bilirubin Negative, Urine Urobilinogen 0.2, Ur Leukocyte Esterase Negative, Urine RBC 3-5, Urine WBC None, Ur Squamous Epith Cells Occasional, Urine Bacteria None, Hyaline Casts 3-5 06/21/23 14:09: Lactate 1.3 06/21/23 12:42 06/21/23 12:42 Orders (Tests/Meds): ED MEDICATIONS Discontinued Medications Generic Name Dose Route Start Last Admin Trade Name Freq PRN Reason Stop Dose Admin Acetaminophen 1,000 mg 06/21/23 14:16 06/21/23 14:30 Acetaminophen 500mg Tab PO 06/21/23 14:17 1,000 mg ONCE ONE Administration Lactated Ringer's 1,000 mls @ 999 mls/hr 06/21/23 14:16 06/21/23 14:30 Lactated Ringer's 1000 Ml Bag IV 06/21/23 15:16 999 mls/hr .Q1H1M ONE Administration Ketorolac Tromethamine 15 mg 06/21/23 14:16 06/21/23 14:31 Ketorolac 30mg/Ml Vial IV 06/21/23 14:17 15 mg ONCE ONE Administration Lidocaine 1 each 06/21/23 14:16 06/21/23 14:30 Lidocaine 5% Transdermal Patch TP 06/21/23 14:17 1 each ONCE ONE Administration ORDERS Category Date Time Status CT abdomen pelvis wo con Stat Cat Scan 06/21/23 14:[address] lumbar spine wo con Stat Cat Scan 06/21/23 14:02 Completed Amylase Stat Lab 06/21/23 12:42 Completed Complete Blood Count Auto Diff Stat Lab 06/21/23 12:42 Completed Comprehensive Metabolic Panel Stat Lab 06/21/23 12:42 Completed Lactic Acid Stat Lab 06/21/23 14:09 Completed Lipase Stat Lab 06/21/23 12:42 Completed Urinalysis and Microscopic Stat Lab 06/21/23 13:47 Completed Urine Culture Stat Micro 06/21/23 13:47 Received Medical Decision Narrative: In summary, this patient is a 73-year-old male presenting to the Emergency Department for evaluation of right lower quadrant/right flank pain. Differential diagnoses considered include but are not limited to ureterolithiasis, pyelonephritis, colitis, appendicitis, musculoskeletal strain/sprain. Ruling out the most morbid conditions drove assessment. It should be noted patient's history includes ALS, CAD, hypertension, hyperlipidemia, and prostate cancer which may or may not be at goal therapy. This complicates all aspects of care by increasing patient's risk for morbidity. I reviewed patient's past medical records and noted hematuria as per HPI on labs obtained at [facility]. On exam, the patient is uncomfortable appearing with no significant abdominal tenderness and no lumbar paraspinal tenderness. He has no alarm findings to suggest spinal cord compression. CBC and CMP obtained just prior to arrival at [facility]. I noted that he had hematuria on that lab evaluation. Workup included urinalysis as well as CT scan of the abdomen and pelvis as well as CT lumbar spine. He was given a bolus of IV fluids as well as IV Toradol, oral Tylenol, and topical Lidoderm patch. On reassessment, the patient is resting comfortably with improved pain. He states he is ready to go home. CT reads are pending at this time. Patient care signed out to the oncoming provider, Dr. Blackman, pending CT reads. <Rudy Blackman, DO - Last Filed: 06/21/23 17:07> Vital Signs: 06/21/23 11:40 06/21/23 13:44 06/21/23 14:01 Temperature 99.2 F 99.2 F Temperature Source Oral Oral Pulse Rate 76 Pulse Rate [Right Radial] 71 77 Respiratory Rate 18 16 Blood Pressure 132/70 Blood Pressure [Right Arm] 113/65 163/74 H Blood Pressure Mean 110 Blood Pressure Mean [Right Arm] 81 103 Blood Pressure Source [Right Arm] Automatic Cuff Automatic Cuff Blood Pressure Position [Right Arm] Sitting Sitting 02 Sat by Pulse Oximetry 95 99 95 Oxygen Delivery Method Room Air Room Air 06/21/23 14:47 Temperature Temperature Source Pulse Rate 66 Pulse Rate [Right Radial] Respiratory Rate Blood Pressure 158/77 H Blood Pressure [Right Arm] Blood Pressure Mean 104 Blood Pressure Mean [Right Arm] Blood Pressure Source [Right Arm] Blood Pressure Position [Right Arm] 02 Sat by Pulse Oximetry 94 L Oxygen Delivery Method Lab Data Lab Results 06/21/23 12:16: Urine Color Yellow, Urine Appearance Clear, Urine pH 5.5, Ur Specific [place] 1.025, Urine Protein Negative, Urine Glucose (UA) Negative, Urine Ketones Negative, Urine Blood 2+, Urine Nitrate Negative, Urine Bilirubin Negative, Urine Urobilinogen 0.2, Ur Leukocyte Esterase Negative 06/21/23 12:42: WBC 4.6 L, RBC 3.60 L, Hgb 11.3 L, Hct 34.9 L, MCV 97.1 H, MCH 31.4 H, MCHC 32.4, RDW 14.2, Plt Count 220, MPV 7.6, Neut % (Auto) 72.4, Lymph % (Auto) 19.4, Carlton % (Auto) 6.6, Eos % (Auto) 0.9, Baso % (Auto) 0.6, Neut # (Auto) 3.3, Lymph # (Auto) 0.9, Carl[place] # (Auto) 0.3, Eos # (Auto) 0.0, Baso # (Auto) 0.0, Sodium 134 L, Potassium 4.7, Chloride 100, Carbon Dioxide 23, Anion Gap 15.7 H, BUN 17, Creatinine 1.00, Estimated Creat Clear 85, Estimated GFR 73, Est GFR ( Amer) 88, Glucose 99, Calcium 9.8, Total Bilirubin 0.9, AST 53, ALT 45, Alkaline Phosphatase 622 H, Total Protein 7.4, Albumin 4.3, Globulin 3.1, Albumin/Globulin Ratio 1.4, Amylase 68, Lipase 84 06/21/23 13:47: Urine Color Yellow, Urine Appearance Clear, Urine pH 6.0, Ur Specific [place] 1.010, Urine Protein Negative, Urine Glucose (UA) Negative, Urine Ketones Negative, Urine Blood 1+, Urine Nitrate Negative, Urine Bilirubin Negative, Urine Urobilinogen 0.2, Ur Leukocyte Esterase Negative, Urine RBC 3-5, Urine WBC None, Ur Squamous Epith Cells Occasional, Urine Bacteria None, Hyaline Casts 3-5 06/21/23 14:09: Lactate 1.3 Orders (Tests/Meds): ED MEDICATIONS Discontinued Medications Generic Name Dose Route Start Last Admin Trade Name Freq PRN Reason Stop Dose Admin Acetaminophen 1,000 mg 06/21/23 14:16 06/21/23 14:30 Acetaminophen 500mg Tab PO 06/21/23 14:17 1,000 mg ONCE ONE Administration Lactated Ringer's 1,000 mls @ 999 mls/hr 06/21/23 14:16 06/21/23 14:30 Lactated Ringer's 1000 Ml Bag IV 06/21/23 15:16 999 mls/hr .Q1H1M ONE Administration Ketorolac Tromethamine 15 mg 06/21/23 14:16 06/21/23 14:31 Ketorolac 30mg/Ml Vial IV 06/21/23 14:17 15 mg ONCE ONE Administration Lidocaine 1 each 06/21/23 14:16 06/21/23 14:30 Lidocaine 5% Transdermal Patch TP 06/21/23 14:17 1 each ONCE ONE Administration ORDERS Category Date Time Status CT abdomen pelvis wo con Stat Cat Scan 06/21/23 14:[address] lumbar spine wo con Stat Cat Scan 06/21/23 14:02 Completed Amylase Stat Lab 06/21/23 12:42 Completed Complete Blood Count Auto Diff Stat Lab 06/21/23 12:42 Completed Comprehensive Metabolic Panel Stat Lab 06/21/23 12:42 Completed Lactic Acid Stat Lab 06/21/23 14:09 Completed Lipase Stat Lab 06/21/23 12:42 Completed Urinalysis and Microscopic Stat Lab 06/21/23 13:47 Completed Urine Culture Stat Micro 06/21/23 13:47 Received Medical Decision Narrative: In summary, this patient is a 73-year-old male presenting to the Emergency Department for evaluation of right lower quadrant/right flank pain. Differential diagnoses considered include but are not limited to ureterolithiasis, pyelonephritis, colitis, appendicitis, musculoskeletal strain/sprain. Ruling out the most morbid conditions drove assessment. It should be noted patient's history includes ALS, CAD, hypertension, hyperlipidemia, and prostate cancer which may or may not be at goal therapy. This complicates all aspects of care by increasing patient's risk for morbidity. I reviewed patient's past medical records and noted hematuria as per HPI on labs obtained at [facility]. On exam, the patient is uncomfortable appearing with no significant abdominal tenderness and no lumbar paraspinal tenderness. He has no alarm findings to suggest spinal cord compression. CBC and CMP obtained just prior to arrival at [facility]. I noted that he had hematuria on that lab evaluation. Workup included urinalysis as well as CT scan of the abdomen and pelvis as well as CT lumbar spine. He was given a bolus of IV fluids as well as IV Toradol, oral Tylenol, and topical Lidoderm patch. On reassessment, the patient is resting comfortably with improved pain. He states he is ready to go home. CT reads are pending at this time. Patient care signed out to the oncoming provider, Dr. Blackman, pending CT reads. Dr. Blackman: Lab work today has been remarkable for a WBC of 4.6. Stable anemia with hemoglobin of 11.3. Sodium 134 alkaline phosphatase 622. Urinalysis with 1+ blood. No leukocyte esterase, WBCs or bacteria present. CT of the L-spine revealed widespread retroperitoneal adenopathy consistent with patient's prostate cancer. CT abdomen pelvis with mild right hydronephrosis and hydroureter. No stones noted. On reassessment patient lesli medically stable in no acute distress stating his pain is much improved at this time and he is ready to be discharged home. I discussed ED workup and results as well as current plan to discharge. He will keep his follow-up appointments as discussed. Provided with return precautions. Subsequently discharged home hemodynamically stable and in no acute distress. Critical Care <Francia Chen, DO - Last Filed: 06/21/23 15:50> Critical Care Time Critical Care Time: No
[2023-06-21 14:30] LABS: Squamous Epithelial Cell,Urine Occasional #/hpf (0-5)
[2023-06-21] MEDS: ACETAMINOPHEN 500MG TAB 1000 MG PO (14:30)
[2023-06-21] MEDS: LACTATED RINGERS 1000ML 1,000 ML 999 ML IV (14:30)
[2023-06-21] MEDS: LIDOCAINE 5% TRANSDERMAL PATCH 1 EACH TP (14:30)
[2023-06-21] MEDS: KETOROLAC 30MG/ML VIAL 15 MG IV (14:31)
--- NOTE | 2023-06-21 14:32 | PC.NURSE ---
pt going ct
[2023-06-21 14:40] LABS: Lactic Acid 1.3 mmol/L (0.7-2.1)
[2023-06-21 14:47] VITALS: BP 158/77; PULSE 66; O2SAT 94
[2023-06-21 17:31] VITALS: BP 145/85; PULSE 75; RESP 20; TEMP 37; O2SAT 96
== END 2023-06-21 17:35 | disposition home or self-care (01) ==
LOC: UTC 11:16 → ER 13:38
PROVIDERS: Nurse Practitioner Family; Emergency Provider Emergency Medicine; PCP Internal Medicine
DX: R10.31 Right lower quadrant pain (principal); M54.59 Other low back pain; R31.9 Hematuria, unspecified; N13.4 Hydroureter; N13.30 Unspecified hydronephrosis; G12.21 Amyotrophic lateral sclerosis; C61 Malignant neoplasm of prostate; I11.9 Hypertensive heart disease without heart failure; I25.10 Atherosclerotic heart disease of native coronary artery without angina pectoris; E78.5 Hyperlipidemia, unspecified; F17.210 Nicotine dependence, cigarettes, uncomplicated
CPT/HCPCS: 72131; 74176; 80053; 81001; 81003; 82150; 83605; 83690; 85025; 87086; 96361; 96374; 99285

== ENCOUNTER 2023-08-09 19:24 | Emergency (ER) | payer MEDICARE, OTHER, SELFPAY ==
[2023-08-09 19:35] VITALS: BP 174/96; PULSE 64; RESP 16; TEMP 36.7; O2SAT 94; BMI 30.4
--- NOTE | 2023-08-09 19:53 | PC.NURSE ---
Blood sugar checked at 1914 blood sugar was 103
[2023-08-09 20:00] VITALS: BP 131/78; PULSE 83; O2SAT 92
--- NOTE | 2023-08-09 20:00 | XR_ITS ---
PROCEDURE INFORMATION: Exam: XR Chest Exam date and time: 08/09/2023 8:08 PM Age: 73 years old Clinical indication: Dyspnea TECHNIQUE: Imaging protocol: Radiologic exam of the chest. Views: 1 view. COMPARISON: CT ABDOMEN PELVIS WO CON 06/21/2023 2:59 PM FINDINGS: Lungs: Parenchymal opacity in the right lung base may represent bland atelectasis or mild infiltrate. Left lung appears clear. Pleural spaces: Unremarkable. No pleural effusion. No pneumothorax. Heart/Mediastinum: Unremarkable. No cardiomegaly. Diaphragm: Mild elevation of the right hemidiaphragm. Bones/joints: Unremarkable. IMPRESSION: Mild right basilar infiltrate versus atelectasis
--- NOTE | 2023-08-09 20:00 | CT_ITS ---
PROCEDURE INFORMATION: Exam: CT Head Without Contrast Exam date and time: 08/09/2023 8:23 PM Age: 73 years old Clinical indication: Other: Confusion; Additional info: Confusion, h/o als and met prost CA. TECHNIQUE: Imaging protocol: Computed tomography of the head without contrast. Radiation optimization: All CT scans at this facility use at least one of these dose optimization techniques: automated exposure control; mA and/or kV adjustment per patient size (includes targeted exams where dose is matched to clinical indication); or iterative reconstruction. COMPARISON: MR ANGIO HEAD WO CON 09/12/2019 3:12 PM FINDINGS: Brain: Thin rim of extra-axial density adjacent to anterior left temporal lobe measures 5 mm in greatest thickness on coronal image 26 (series 1001). No significant associated mass effect or midline shift. No evidence of intraparenchymal hemorrhage or acute ischemia. Significant generalized cerebral atrophy. Scattered small areas of dural calcification noted falx cerebri. Cerebral ventricles: No ventriculomegaly. Paranasal sinuses: Complete opacification of the right maxillary sinus. Sinuses otherwise clear. No fluid levels. Mastoid air cells: Visualized mastoid air cells are well aerated. Bones: Unremarkable. No acute fracture. Soft tissues: Unremarkable. IMPRESSION: Thin rim of extra-axial density left temporal region as described. In the setting of recent trauma, this may represent a small acute subdural epidural hemorrhage. Otherwise, focal dural thickening and partial calcification would be of consideration. Of note, no appreciable dural thickening was seen this area prior from 2019.
--- NOTE | 2023-08-09 20:03 | ED_ITS ---
Discharge Plan Disposition Patient Disposition: Home, Self-Care Prescriptions Prescriptions: No Action tamsulosin [Flomax] 0.4 mg capsule 0.4 mg PO DAILY cholecalciferol (vitamin D3) 25 mcg (1,000 unit) capsule 25 mcg PO DAILY ascorbic acid (vitamin C) 500 mg capsule 500 mg PO DAILY clopidogrel [Plavix] 75 mg tablet 75 mg PO DAILY memantine 10 mg tablet 10 mg PO BID magnesium oxide 500 mg tablet 500 mg PO BID omega-3 fatty acids [Fish Oil Concentrate] 1,000 mg capsule 1,000 mg PO DAILY zinc 50 mg tablet 50 mg PO DAILY leuprolide 7.5 mg injectable IM bicalutamide 50 mg tablet 50 mg PO DAILY Patient Comments: TAKE 1 TABLET BY MOUTH EVERY DAY megestrol 40 mg tablet 40 mg PO BID Patient Comments: TAKE 1 TABLET (40 MG TOTAL) BY MOUTH 3 TIMES A DAY FOR 60 DAYS. riluzole 50 mg tablet 50 mg PO BID Patient Comments: TAKE 1 TABLET BY MOUTH EVERY 12 HOURS Referrals Follow up/Referrals: [place] DO [Primary Care Provider] - See instructions Activity Restrictions/Add. Instructions Additional Instructions/Restrictions: No emergent medical condition identified today other than mild acute kidney injury likely secondary to dehydration. Please have your creatinine rechecked within 24 to 48 hours with your primary care doctor. Clinical Impressions Clinical Impression: Generalized weakness, MAUREEN (acute kidney injury), Acute dehydration, Intermittent confusion Discharge ED Provider: Adonay Apodaca General Adult HPI General Chief complaint: Weakness Stated complaint: stroke symptoms Time Seen by Provider: 08/09/23 19:51 Mode of Arrival: Wheelchair Source of Information: Patient and Significant Other Limitations: Altered Mental Status Description of Symptoms (Recalled from ER Triage Doc. by RN): PT reports to ED via wheelchair. Pt's states that pt has been lethargic, no appetite, confused, and unable to walk that started approx 6 am. Pts also states that the pt has an extended stomach with no BM for a couple days . states that pt has a hx of prostate cancer and ALS History of Present Illness HPI narrative: Patient is a 73-year-old man brought in today for confusion and generalized weakness. He has a history of metastatic prostate cancer he is followed at [facility] for that. Also has a diagnosis of ALS which has been progressive over the last 4 years since around [facility]. His and son are at the bedside and they state that he has been increasingly confused and had difficulty walking over the last few days which is significant worsened off of his baseline. No focal symptoms such as focal weakness cough urinary symptoms focal pain etc. The patient currently is relatively lucid and denies any significant focal or localizing symptoms. His family states that even at the moment he is off of his baseline. Related Data Home Medications Medication Instructions Recorded Confirmed cholecalciferol (vitamin D3) 25 25 mcg PO DAILY 06/29/19 08/02/23 mcg (1,000 unit) capsule tamsulosin 0.4 mg capsule (Flomax) 0.4 mg PO DAILY 06/29/19 08/02/23 ascorbic acid (vitamin C) 500 mg 500 mg PO DAILY 08/29/20 08/02/23 capsule clopidogrel 75 mg tablet (Plavix) 75 mg PO DAILY 08/29/20 08/02/23 magnesium oxide 500 mg PO BID 08/29/20 08/02/23 memantine 10 mg tablet 10 mg PO BID 08/29/20 08/02/23 omega-3 fatty acids 1,000 mg 1,000 mg PO DAILY 08/29/20 08/02/23 capsule (Fish Oil Concentrate) zinc 50 mg tablet 50 mg PO DAILY 08/29/20 08/02/23 leuprolide 7.5 mg intramuscular mg IM 04/21/22 08/02/23 megestrol 40 mg tablet 40 mg PO BID 04/21/22 08/02/23 riluzole 50 mg tablet 50 mg PO BID 11/17/22 08/02/23 bicalutamide 50 mg tablet 50 mg PO DAILY 03/03/23 08/02/23 Allergies Allergy/AdvReac Type Severity Reaction Status Date / Time shellfish derived Allergy Intermediate I-HIVES Verified 08/02/23 10:15 [From SHELLFISH (FOOD/DRUG)] From SHELLFISH (FOOD/DRUG) Allergy Intermediate I-HIVES Uncoded 08/02/23 10:15 [facility] Disclaimer: The information contained in this section may have been updated after the patient was seen, as this information can be updated by other users. Medical History Chest pain Diastolic dysfunction Hypertension Prostate cancer ALS (amyotrophic lateral sclerosis) Slurred speech Moderate mitral valve regurgitation HHD (hypertensive heart disease) Pulmonary hypertension Tobacco dependence syndrome Diastolic dysfunction Coronary arteriosclerosis Social History Smoking Status: Current every day smoker tobacco type: cigarettes packs per day: 1 alcohol intake: never substance use type: denies use current occupational status: retired Travel in the last 8 weeks: Inside the [place] caffeine: Yes ROS Obtained: Yes All systems reviewed & no additional complaints except as documented Physical Exam General General appearance: alert and in no apparent distress Respiratory Respiratory exam: Present normal lung sounds bilaterally; Absent respiratory distress Cardiovascular Cardiovascular exam: Present regular rate and normal rhythm Abdominal Exam Abdominal exam: Present soft; Absent distention or tenderness Neurological Exam Neurological exam: Present alert, oriented X3 and motor sensory deficit (Patient has chronic weakness in his extremities left greater than right but is at his baseline from a motor strength standpoint) Medical Decision Making [place] Inquiry Pt receiving controlled substance: No Vital Signs: 08/09/23 19:35 08/09/23 20:00 08/09/23 20:40 Temperature 98.0 F Temperature Source Oral Pulse Rate 83 85 Pulse Rate [Left Radial] 64 Respiratory Rate 16 Blood Pressure 131/78 137/91 H Blood Pressure [Right Arm] 174/96 H Blood Pressure Mean 106 Blood Pressure Mean [Right Arm] 122 02 Sat by Pulse Oximetry 94 L 92 L 93 L Oxygen Delivery Method Room Air 08/09/23 21:00 08/09/23 21:30 Temperature Temperature Source Pulse Rate 84 84 Pulse Rate [Left Radial] Respiratory Rate Blood Pressure 146/81 H 131/82 Blood Pressure [Right Arm] Blood Pressure Mean Blood Pressure Mean [Right Arm] 02 Sat by Pulse Oximetry 94 L 93 L Oxygen Delivery Method Lab Data Lab results reviewed: Yes I reviewed the patient's lab results. Lab Results 08/09/23 19:33: WBC 4.2 L, RBC 3.76 L, Hgb 12.6 L, Hct 38.2 L, MCV 101.6 H, MCH 33.6 H, MCHC 33.1, RDW 16.6, Plt Count 101 L, MPV 8.4, Neut % (Auto) 68.2, Lymph % (Auto) 24.4, [place] % (Auto) 5.3, Eos % (Auto) 1.3, Baso % (Auto) 0.8, Neut # (Auto) 2.9, Lymph # (Auto) 1.0, [place] # (Auto) 0.2, Eos # (Auto) 0.1, Baso # (Auto) 0.0, PT 12.2, INR 1.10, APTT 30.3, Sodium 135 L, Potassium 4.7, Chloride 99, Carbon Dioxide 24, Anion Gap 16.7 H, BUN 28 H, Creatinine 1.60 H, Estimated Creat Clear 52, Estimated GFR 42 L, Est GFR ( Amer) 51 L, Glucose 102 H, Calcium 8.9, Phosphorus 3.6, Magnesium 2.8 H, Total Bilirubin 1.0, AST 150 H, ALT 58, Alkaline Phosphatase 1444 H, Troponin I < 0.01, NT-Pro-B Natriuret Pep 273 H, Total Protein 6.7, Albumin 3.7, Globulin 3.0, Albumin/Globulin Ratio 1.2, TSH 3.71 08/09/23 20:02: VBG pH 7.42 H, VBG pCO2 35.8, VBG pO2 35.4, VBG HCO3 22.6 L, VBG Total CO2 23.7, VBG O2 Saturation 68.3, VBG Base Excess -1.8, VBG Lactic Acid 1.8 08/09/23 21:34: Urine Color Yellow, Urine Appearance Clear, Urine pH 6.0, Ur Specific [place] 1.020, Urine Protein Negative, Urine Glucose (UA) Negative, Urine Ketones Negative, Urine Blood Negative, Urine Nitrate Negative, Urine Bilirubin Negative, Urine Urobilinogen 0.2, Ur Leukocyte Esterase Negative, Urine RBC None, Urine WBC None, Ur Squamous Epith Cells Occasional, Urine Bacteria None 08/09/23 19:33 08/09/23 19:33 Orders (Tests/Meds): ED MEDICATIONS Discontinued Medications Generic Name Dose Route Start Last Admin Trade Name Freq PRN Reason Stop Dose Admin Lactated Ringer's 1,000 mls @ 999 mls/hr 08/09/23 20:00 08/09/23 20:36 Lactated Ringer's 1000 Ml Bag IV 08/09/23 21:00 999 mls/hr .Q1H1M NISH Administration ORDERS Category Date Time Status CT head/brain wo con Stat Cat Scan 08/09/23 20:00 Completed CXR --portable [XR chest portable] Stat Exams 08/09/23 20:00 Completed BNP [NT Pro Brain Natriuretic Pep.] Stat Lab 08/09/23 19:33 Completed CBC w/Auto Diff [Complete Blood Count Auto Diff] Stat Lab 08/09/23 19:33 Completed CMP [Comprehensive Metabolic Panel] Stat Lab 08/09/23 19:33 Completed Magnesium Stat Lab 08/09/23 19:33 Completed PT/PTT Stat Lab 08/09/23 19:33 Completed Phosphorous Stat Lab 08/09/23 19:33 Completed TSH [Thyroid Stimulating Hormone] Stat Lab 08/09/23 19:33 Completed Trop I [Troponin I] Stat Lab 08/09/23 19:33 Completed Troponin I Q3H Lab 08/09/23 23:15 Ordered Troponin I Q3H Lab 08/10/23 02:15 Ordered UA [Urinalysis and Microscopic] Stat Lab 08/09/23 21:34 Completed Venous Blood Gas Stat RT 08/09/23 20:02 Completed Medical Decision Narrative: 73-year-old male present today with confusion generalized weakness differential includes heart failure, metabolic abnormalities, infectious etiology such as urinary tract infection pneumonia, worsening metastatic disease of known prostate cancer, worsening of his ALS. Will get broad workup and reassess. Reassessment 10:02 PM chest x-ray performed which I personally interpreted which showed no acute cardiopulmonary abnormality radiology read this is atelectasis versus infiltrate but this is not consistent with pneumonia clinically and on my personal interpretation of the reads as well. Patient is CT scan of the head which I first interpreted shows no acute intracranial abnormality. Radiology read a small hyperdensity in the left lateral frontal region which is either calcification and thickened dura versus a small subdural hemorrhage in the setting of trauma. I will discuss this further with the family and showed them the images and they are certain that he has not had any trauma which makes that hemorrhage exceedingly unlikely. Also given how small this is send his neurologic status and his baseline situation is exceedingly unlikely that he would require any neurosurgical invention which they agreed with therefore will not transfer the patient or seek further evaluation of this and presumptively this is just a calcification anyway. Patient does have mild acute kidney injury with a creatinine of 1.6 baseline 1.0. This is likely secondary to dehydration bolus of IV fluids have been administered he has had a GCS of 15 with a nonfocal neurologic exam the entirety on serial neurologic exams here. Additionally has a very mild elevation in his AST which is nonspecific he has a benign abdominal exam and no other suggestive abnormalities to suggest any intra-abdominal pathology. No indication for CT imaging with a benign abdominal exam at this point. Overall nonspecific workup nothing to explain generalized weakness and the patient has not been confused the entirety of his stay in the ED. Family including his and son both at the bedside are comfortable taking him home with close outpatient follow-up to repeat his creatinine and return with any worsening symptoms. Patient was discharged in stable condition. Of note patient's alkaline phosphatase is severely elevated likely in the setting of metastatic cancer. Critical Care Critical Care Time Critical Care Time: No
--- NOTE | 2023-08-09 20:09 | ECG_ITS ---
APPROVED REPORT Exam: Resting ECG HR:79 bpm ECG Measurements Heart Rate 79 AXES MI 173 P 50 QRSd 94 QRS 89 QT 373 T 46 QTc 407 Conclusion SINUS RHYTHM NORMAL ECG UNCONFIRMED REPORT Electronically signed by : Tej Apodaca, 08/10/2023 23:16:12
[2023-08-09 20:13] LABS: Basophils % 0.8 % (0.1-2.0); Eosinophils # 0.1 K/mm3 (0.0-0.4); Eosinophils % 1.3 % (0.1-12.0); Hematocrit 38.2 % (42.0-52.0); Hemoglobin 12.6 g/dL (14.1-18.0); Lymphocytes % 24.4 % (10-50); Mean Corpuscular HGB Conc 33.1 g/dL (31.8-35.4); Mean Corpuscular Hemoglobin 33.6 pg (27.0-31.2); Mean Corpuscular Volume 101.6 fl (80-94); Mean Platelet Volume 8.4 fl (7.4-10.4); Monocytes # 0.2 K/mm3 (0.1-1.0); Monocytes % 5.3 % (1.7-9.3); Neutrophils # 2.9 K/mm3 (1.8-7.8); Neutrophils % 68.2 % (37.0-80.0); Platelet Count 101 K/mm3 (142-424); Red Blood Count 3.76 M/mm3 (4.60-6.20); Red Cell Distribution Width 16.6 % (11.5-17.5); White Blood Count 4.2 K/mm3 (4.8-10.8)
[2023-08-09 20:14] LABS: Chloride 99 mmol/L (98-107); Sodium 135 mmol/L (136-145)
[2023-08-09 20:15] LABS: Potassium 4.7 mmoL/L (3.5-5.1)
[2023-08-09 20:17] LABS: Alanine Aminotransferase 58 U/L (12-78); Albumin Level 3.7 g/dl (3.5-5.0); Albumin/Globulin Ratio 1.2 (1.1-1.8); Anion Gap 16.7 mEq/L (5-15); Aspartate Amino Transferase 150 U/L (17-59); Blood Urea Nitrogen 28 mg/dl (9-20); Carbon Dioxide 24 mmol/L (22.0-30.0); Creatinine Clearance Estimated 52 mL/min (50-200); Estimated Glomerular Filt Rate 42 ml/min (>60); GFR (African American) 51 ML/MIN (>60); Phosphorous 3.6 mg/dl (2.5-4.5); Total Protein,Serum 6.7 g/dl (6.3-8.2)
[2023-08-09 20:18] LABS: Calcium 8.9 mg/dl (8.4-10.2); Glucose 102 mg/dl (74-100); Magnesium 2.8 mg/dl (1.6-2.3)
[2023-08-09 20:19] LABS: Activated Partial Thrombo Time 30.3 seconds (22.8-30.6); Prothrombin Time 12.2 seconds (10.1-12.5)
--- NOTE | 2023-08-09 20:24 | PC.NURSE ---
patient back from Radiology
[2023-08-09 20:25] LABS: Alkaline Phosphatase 1444 U/L (38-126)
[2023-08-09 20:26] LABS: NT Pro Brain Natriuretic Pep. 273 pg/mL (0-125)
[2023-08-09 20:29] LABS: Troponin I < 0.01 ng/ml (0.00-0.034)
[2023-08-09] MEDS: LACTATED RINGERS 1000ML 1,000 ML 999 ML IV (20:36)
[2023-08-09 20:40] VITALS: BP 137/91; PULSE 85; O2SAT 93
[2023-08-09 20:48] LABS: Lactate Venous 1.8 mmol/L (0.4-2.0); VBG Base Excess -1.8 mmol/L (-2.4-2.3); VBG HCO3 22.6 mmol/L (23-30); VBG Oxygen Saturation 68.3 % (50-70); VBG PCO2 35.8 mmol/L (35-51); VBG PH 7.42 mmol/L (7.31-7.41); VBG PO2 35.4 mmol/L (28-40); VBG Total CO2 23.7 mmol/L (23-27)
[2023-08-09 21:00] VITALS: BP 146/81; PULSE 84; O2SAT 94
[2023-08-09 21:05] LABS: Thyroid Stimulating Hormone 3.71 uIU/mL (0.465-4.68)
[2023-08-09 21:30] VITALS: BP 131/82; PULSE 84; O2SAT 93
[2023-08-09 21:42] LABS: Microscopic, Urine URINE MICROSCOPIC (MICROSCOPIC)
[2023-08-09 21:44] LABS: Appearance,Urine CLEAR (Clear); Bilirubin,Urine Negative (Negative); Blood, Urine Negative (Negative); Color,Urine YELLOW (Yellow); Glucose,Urine (UA) Negative (Negative); Ketones,Urine Negative (Negative); Leukocyte Esterase,Urine Negative (Negative); Nitrate,Urine Negative (Negative); Protein,Urine Negative (Negative); Urobilinogen,Urine 0.2 EU/dl (0.2)
[2023-08-09 21:56] LABS: Squamous Epithelial Cell,Urine Occasional #/hpf (0-5)
[2023-08-09 22:03] VITALS: BP 144/76; PULSE 84; RESP 16; TEMP 36.7; O2SAT 99
== END 2023-08-09 22:04 | disposition home or self-care (01) ==
PROVIDERS: Emergency Provider Student in an Organized Health Care Education/Training Program; PCP Internal Medicine
DX: E86.0 Dehydration (principal); R41.0 Disorientation, unspecified; R53.1 Weakness; N17.8 Other acute kidney failure; G12.21 Amyotrophic lateral sclerosis; C61 Malignant neoplasm of prostate; F17.210 Nicotine dependence, cigarettes, uncomplicated; I11.9 Hypertensive heart disease without heart failure; I25.10 Atherosclerotic heart disease of native coronary artery without angina pectoris; I27.20 Pulmonary hypertension, unspecified
CPT/HCPCS: 70450; 71045; 80053; 81001; 82803; 83735; 83880; 84100; 84443; 84484; 85025; 85610; 85730; 93005; 96360; 99285; J7120

== ENCOUNTER 2023-08-10 11:09 | Outpatient (CLI) | payer MEDICARE, OTHER, SELFPAY ==
[2023-08-10 19:42] LABS: Alanine Aminotransferase 53 U/L (12-78); Albumin Level 3.3 g/dl (3.5-5.0); Albumin/Globulin Ratio 1.4 (1.1-1.8); Aspartate Amino Transferase 126 U/L (17-59); Bilirubin,Total 1.1 mg/dl (0.2-1.3); Blood Urea Nitrogen 22 mg/dl (9-20); Calcium 8.8 mg/dl (8.4-10.2); Carbon Dioxide 24 mmol/L (22.0-30.0); Chloride 100 mmol/L (98-107); Estimated Glomerular Filt Rate 50 ml/min (>60); GFR (African American) 60 ML/MIN (>60); Globulin 2.4 g/dL (1.3-3.2); Glucose 104 mg/dl (74-100); Sodium 134 mmol/L (136-145); Total Protein,Serum 5.7 g/dl (6.3-8.2)
[2023-08-10 19:49] LABS: Alkaline Phosphatase 1293 U/L (38-126)
[2023-08-10 20:20] LABS: Anion Gap 14.7 mEq/L (5-15); Potassium 4.7 mmoL/L (3.5-5.1)
== END 2023-08-10 23:59 | disposition home or self-care (01) ==
LOC: LAB.DROPOF 08-11 11:10
PROVIDERS: PCP Internal Medicine; Visit Provider Internal Medicine
DX: R41.0 Disorientation, unspecified (principal)
CPT/HCPCS: 80053